=== PATIENT | male | born 2000 | race Hispanic/Latino ===

== ENCOUNTER 2023-05-21 03:37 | Emergency (ER) | payer SELFPAY | END 2023-05-21 05:27 | disposition home or self-care (01) | LOC: ERS 03:37 → EDBD 03:37 → ERS 05:27 | DX: R06.00 Dyspnea, unspecified (principal); F17.290 Nicotine dependence, other tobacco product, uncomplicated | CPT/HCPCS: 36416; 71045; 93005; 94760 ==